=== PATIENT | female | born 1945 | race African-American/Black ===

== ENCOUNTER 2017-05-18 13:44 | Inpatient (IN) | payer MEDICARE, BC ==
[~2017-05-18] VITALS: Ht 162.6 cm; Wt 42.9 kg
[~2017-05-18 13:44] MED LIST: IOHEXOL-350 100 ML BOTTLE ONE; SODIUM CHLORIDE 0.9% 10ML VIAL ONE
[2017-05-18 14:22] LABS: HEMATOCRIT. 28.4 % (36.0-48.0); HEMOGLOBIN. 9.2 g/dL (12.0-16.0); MEAN CORPUSCULAR HEMOGLOBIN 33.8 pg (28.0-32.0); MEAN CORPUSCULAR VOLUME 104.4 fL (81.0-99.0); MEAN PLATELET VOLUME 9.6 fl (7.4-10.4); PLATELET 142 x1000/uL (130-400); RED BLOOD CELL COUNT 2.72 mill/uL (4.2-5.4); RED CELL DISTRIBUTION WIDTH 17.1 % (11.6-14.6)
[2017-05-18 14:33] LABS: PROTHROMBIN TIME 64.6 sec (9.4-11.6)
[2017-05-18 14:37] LABS: CARBON DIOXIDE 19 mEq/L (21-32); CHLORIDE 106 mEq/L (98-107); INR 6.2; TROPONIN I 0.08 ng/mL (0.00-0.04)
[2017-05-18 16:05] LABS: PLATELET ESTIMATE NORMAL
[2017-05-18] MEDS ORDERED: ACETAMINOPHEN 325MG TABLET PO PRN (16:45)
[2017-05-18] MEDS ORDERED: NITROGLYCERIN 0.4MG TABLET SL SL PRN (16:45)
[2017-05-18] MEDS ORDERED: DOCUSATE SODIUM 100MG CAPSULE PO PRN (16:45)
[2017-05-18] MEDS ORDERED: LORAZEPAM 2MG/ML CPJ IV PRN (16:45)
[2017-05-18] MEDS ORDERED: ONDANSETRON HCL 4MG/2ML VIAL IV PRN (16:45)
[2017-05-18] MEDS ORDERED: MAGNESIUM/ALUMINUM HYDROXIDE/SIMETHICONE 30ML UDC PO PRN (16:45)
[2017-05-18] MEDS ORDERED: IPRATROPIUM/ALBUTEROL 0.5-3(2.5)MG/3ML NEB INH PRN (16:45)
[2017-05-18] MEDS ORDERED: DIPHENHYDRAMINE 50MG/ML VIAL IV PRN (16:45)
[2017-05-18] MEDS ORDERED: GUAIFENESIN 200MG/10ML SUGAR FREE UDC PO PRN (16:45)
[2017-05-18] MEDS ORDERED: MORPHINE SULFATE 4 MG/ML CPJ (NOT FOR IM USE) IV PRN (17:00)
[2017-05-18] MEDS ORDERED: TRAMADOL 50MG TABLET PO PRN (17:00)
[2017-05-18 17:43] LABS: VITAMIN B12 SERUM 1422 pg/mL (211-911)
[2017-05-18 18:54] LABS: FOLIC ACID (FOLATE) SERUM > 20.00 ng/mL (>5.38)
[2017-05-18 19:00] VITALS: BP 183/103
[2017-05-18 20:00] VITALS: BP 212/88
[2017-05-18] MEDS ORDERED: LABE100T PO (20:02)
[2017-05-18] MEDS ORDERED: INSU3INS8 SUBCUT (20:02)
[2017-05-18] MEDS ORDERED: IRON100V5 IV (20:02)
[2017-05-18] MEDS ORDERED: OCD PO (20:02)
[2017-05-18] MEDS ORDERED: NIFE90TA34 PO (20:02)
[2017-05-18] MEDS ORDERED: WARF5TAB73 PO (20:02)
[2017-05-18] MEDS ORDERED: EPOE10005 IJ (20:02)
[2017-05-18] MEDS ORDERED: ERGO500013 PO (20:02)
[2017-05-18] MEDS ORDERED: DORZ10DR7 EACHEYE (20:02)
[2017-05-18] MEDS ORDERED: BRIM15DR2 EACHEYE (20:02)
[2017-05-18] MEDS ORDERED: ANAS1TAB7 PO (20:09)
[2017-05-18] MEDS ORDERED: HYDR-4134 PO (20:09)
[2017-05-18] MEDS ORDERED: CINA30 PO (20:09)
[2017-05-18] MEDS ORDERED: ASPI-986 PO (20:09)
[2017-05-18] MEDS ORDERED: CLON0.1T PO (20:09)
[2017-05-18] MEDS ORDERED: ATOR20TA65 PO (20:09)
[2017-05-18] MEDS ORDERED: FOLI1TAB63 PO (20:09)
[2017-05-18] MEDS ORDERED: ZOLPIDEM TARTRATE 5MG TABLET PO PRN (20:30)
[2017-05-18] MEDS: CLONIDINE 0.1MG TABLET PO SCH (20:34)
[2017-05-18] MEDS: HYDRALAZINE HCL 25MG TABLET PO SCH (20:34)
[2017-05-18] MEDS: NIFEDIPINE XL 90MG TAB PO SCH (20:34)
[2017-05-18] MEDS: LABETALOL HCL 100MG TABLET PO SCH (20:35)
[2017-05-18] MEDS ORDERED: EPOETIN ALFA 10000UNITS/ML VIAL SUBCUT SCH (21:00)
[2017-05-18] MEDS ORDERED: HEPARIN SODIUM 1,000 UNIT/1ML VIAL IV NR (21:00)
[2017-05-18 22:00] VITALS: BP 194/68
[2017-05-18 23:09] LABS: CREATINE KINASE MB FRACTION 2.7 ng/mL (0.5-3.6); TROPONIN I 0.09 ng/mL (0.00-0.04)
[2017-05-18] MEDS: FAMOTIDINE 20MG/2ML VIAL IV SCH (23:46)
[2017-05-19] VITALS (14 sets, daily range): BP systolic 143–190; BP diastolic 54–103
[2017-05-19] MEDS: CLONIDINE 0.1MG TABLET PO PRN ×2 (05:22→19:31)
[2017-05-19] MEDS: LABETALOL HCL 100MG TABLET PO SCH ×3 (05:22→21:18)
[2017-05-19 06:53] LABS: BASOPHILS % 1.2 % (0.0-2.0); EOSINOPHILS % 3.1 % (0.0-5.0); HEMATOCRIT. 27.4 % (36.0-48.0); HEMOGLOBIN. 9.1 g/dL (12.0-16.0); MEAN CORPUSCULAR HEMOGLOBIN 33.8 pg (28.0-32.0); MEAN CORPUSCULAR VOLUME 102.3 fL (81.0-99.0); MEAN PLATELET VOLUME 10.1 fl (7.4-10.4); MONOCYTES % 8.6 % (2.0-8.0); NEUTROPHILS % 72.1 % (40.0-76.0); PLATELET 132 x1000/uL (130-400); RED BLOOD CELL COUNT 2.68 mill/uL (4.2-5.4); RED CELL DISTRIBUTION WIDTH 16.9 % (11.6-14.6)
[2017-05-19] MEDS: HYDRALAZINE HCL 25MG TABLET PO SCH ×3 (06:53→21:18)
[2017-05-19] MEDS: CLONIDINE 0.1MG TABLET PO SCH ×2 (06:54→17:34)
[2017-05-19 07:29] LABS: INR 4.4
[2017-05-19 07:42] LABS: CREATINE KINASE MB FRACTION 1.8 ng/mL (0.5-3.6); TROPONIN I 0.09 ng/mL (0.00-0.04)
[2017-05-19] MEDS: SEVELAMER CARBONATE 800 MG TABLET PO SCH ×3 (08:33→17:34)
[2017-05-19] MEDS: FOLIC ACID/VITAMIN B COMP W-C TABLET PO SCH (08:33)
[2017-05-19] MEDS: NIFEDIPINE XL 90MG TAB PO SCH (08:33)
[2017-05-19] MEDS ORDERED: HEPARIN SODIUM 1,000 UNIT/1ML VIAL IV NR (13:30)
[2017-05-19] MEDS ORDERED: DEXTROSE 50% WATER 50ML SYRINGE IV PRN (19:45)
[2017-05-19] MEDS: BLOOD SUGAR DIAGNOSTIC STRIP TEST SCH (20:42)
[2017-05-19] MEDS ORDERED: EPOETIN ALFA 4000UNITS/ML VIAL SUBCUT NR (21:00)
[2017-05-19] MEDS: INSULIN LISPRO 100 UNITS/ML SUBCUT SCH (21:19)
[2017-05-19] MEDS: FAMOTIDINE 20MG/2ML VIAL IV SCH (21:20)
[2017-05-20] VITALS (14 sets, daily range): BP systolic 125–211; BP diastolic 48–81
[2017-05-20] MEDS: CLONIDINE 0.1MG TABLET PO PRN ×3 (01:16→11:38)
[2017-05-20] MEDS: HYDRALAZINE HCL 25MG TABLET PO SCH (05:25)
[2017-05-20] MEDS: LABETALOL HCL 100MG TABLET PO SCH ×3 (05:25→22:00)
[2017-05-20 06:15] LABS: BASOPHILS % 1.2 % (0.0-2.0); EOSINOPHILS % 4.5 % (0.0-5.0); HEMATOCRIT. 28.1 % (36.0-48.0); HEMOGLOBIN. 9.4 g/dL (12.0-16.0); LYMPHOCYTES % 15.2 % (20.0-50.0); MEAN CORPUSCULAR HEMOGLOBIN 34.1 pg (28.0-32.0); MEAN CORPUSCULAR VOLUME 102.1 fL (81.0-99.0); MEAN PLATELET VOLUME 9.6 fl (7.4-10.4); MONOCYTES % 9.1 % (2.0-8.0); PLATELET 128 x1000/uL (130-400); RED BLOOD CELL COUNT 2.75 mill/uL (4.2-5.4); RED CELL DISTRIBUTION WIDTH 16.5 % (11.6-14.6)
[2017-05-20 06:31] LABS: INR 2.5; PROTHROMBIN TIME 26.2 sec (9.4-11.6)
[2017-05-20] MEDS: BLOOD SUGAR DIAGNOSTIC STRIP TEST SCH ×4 (08:00→21:07)
[2017-05-20] MEDS: FOLIC ACID/VITAMIN B COMP W-C TABLET PO SCH (08:05)
[2017-05-20] MEDS: CLONIDINE 0.1MG TABLET PO SCH ×2 (08:05→16:57)
[2017-05-20] MEDS: SEVELAMER CARBONATE 800 MG TABLET PO SCH ×3 (08:05→16:56)
[2017-05-20] MEDS: NIFEDIPINE XL 90MG TAB PO SCH (08:05)
[2017-05-20] MEDS: INSULIN LISPRO 100 UNITS/ML SUBCUT SCH ×4 (08:06→21:00)
[2017-05-20] MEDS: MINOXIDIL 2.5MG TABLET PO SCH (12:43)
[2017-05-20] MEDS: HYDRALAZINE HCL 50MG TABLET PO SCH ×2 (14:03→21:07)
[2017-05-20] MEDS ORDERED: WARFARIN SODIUM 4MG TABLET PO SCH (18:00)
[2017-05-20] MEDS: FAMOTIDINE 20MG/2ML VIAL IV SCH (21:06)
[2017-05-21] VITALS (9 sets, daily range): BP systolic 119–147; BP diastolic 45–75
[2017-05-21 05:56] LABS: INR 1.7; PROTHROMBIN TIME 18.1 sec (9.4-11.6)
[2017-05-21 06:05] LABS: BASOPHILS % 1.3 % (0.0-2.0); EOSINOPHILS % 4.2 % (0.0-5.0); HEMATOCRIT. 27.1 % (36.0-48.0); HEMOGLOBIN. 9.2 g/dL (12.0-16.0); MEAN CORPUSCULAR HEMOGLOBIN 34.1 pg (28.0-32.0); MEAN CORPUSCULAR VOLUME 100.9 fL (81.0-99.0); MEAN PLATELET VOLUME 9.8 fl (7.4-10.4); MONOCYTES % 7.6 % (2.0-8.0); NEUTROPHILS % 67.9 % (40.0-76.0); PLATELET 147 x1000/uL (130-400); RED BLOOD CELL COUNT 2.69 mill/uL (4.2-5.4); RED CELL DISTRIBUTION WIDTH 16.3 % (11.6-14.6)
[2017-05-21] MEDS: HYDRALAZINE HCL 50MG TABLET PO SCH ×2 (06:09→14:46)
[2017-05-21] MEDS: LABETALOL HCL 100MG TABLET PO SCH ×2 (06:10→14:46)
[2017-05-21] MEDS: BLOOD SUGAR DIAGNOSTIC STRIP TEST SCH ×2 (06:17→13:00)
[2017-05-21] MEDS: INSULIN LISPRO 100 UNITS/ML SUBCUT SCH ×2 (06:28→13:41)
[2017-05-21] MEDS: SEVELAMER CARBONATE 800 MG TABLET PO SCH ×2 (07:20→13:35)
[2017-05-21] MEDS: FOLIC ACID/VITAMIN B COMP W-C TABLET PO SCH (09:00)
[2017-05-21] MEDS: CLONIDINE 0.1MG TABLET PO SCH (09:00)
[2017-05-21] MEDS: MINOXIDIL 2.5MG TABLET PO SCH (10:00)
[2017-05-21] MEDS: NIFEDIPINE XL 90MG TAB PO SCH (10:00)
[2017-05-21] MEDS ORDERED: WARFARIN SODIUM 5MG TABLET PO NR (17:00)
== END 2017-05-21 15:50 | disposition home or self-care (01) | DRG 291 ==
LOC: ER 13:58 → 3WST 15:48 → SUPCPDRO 15:59 → EDBEDREQ 16:02 → EDBEDREQTM 16:02 → ENRESERV 17:52
PROVIDERS: ADMIT Internal Medicine; ATTEND Internal Medicine
DX: I13.2 Hypertensive heart and chronic kidney disease with heart failure and with stage 5 chronic kidney disease, or end stage renal disease (principal); I26.99 Other pulmonary embolism without acute cor pulmonale; J96.91 Respiratory failure, unspecified with hypoxia; N18.6 End stage renal disease; I31.3 Pericardial effusion (noninflammatory); D68.9 Coagulation defect, unspecified; E11.22 Type 2 diabetes mellitus with diabetic chronic kidney disease; I50.33 Acute on chronic diastolic (congestive) heart failure; E44.1 Mild protein-calorie malnutrition; Z68.1 Body mass index [BMI] 19.9 or less, adult; Z99.81 Dependence on supplemental oxygen; E83.51 Hypocalcemia; E87.5 Hyperkalemia; J44.9 Chronic obstructive pulmonary disease, unspecified; Z79.01 Long term (current) use of anticoagulants; Z86.718 Personal history of other venous thrombosis and embolism; Z99.2 Dependence on renal dialysis; Z79.899 Other long term (current) drug therapy; Z86.73 Personal history of transient ischemic attack (TIA), and cerebral infarction without residual deficits; D64.9 Anemia, unspecified; T45.515A Adverse effect of anticoagulants, initial encounter; Y92.89 Other specified places as the place of occurrence of the external cause
CPT/HCPCS: 36415; 71010; 71275; 80048; 80053; 80061; 82550; 82553; 82607; 82746; 82962; 83036; 83880; 84484; 85025; 85610; 93005; 93306; 93970; 97162; 99285; A4216; J0885; J1644; J1815; J3490; J7030; Q9967

== ENCOUNTER 2017-06-14 04:04 | Inpatient (IN) | payer MEDICARE, BC ==
[~2017-06-14] VITALS: Ht 149.9 cm; Wt 44.0 kg
[~2017-06-14 04:04] MED LIST changes: +ANAS1TAB7 PO; +ASPI-986 PO; +ATOR20TA65 PO; +BRIM15DR2 EACHEYE; +CINA30 PO; +CLON0.1T PO; +DORZ10DR7 EACHEYE; +EPOE10005 IJ; +ERGO500013 PO; +FOLI1TAB63 PO; +HYDR-4134 PO; +INSU3INS8 SUBCUT; -IOHEXOL-350 100 ML BOTTLE ONE; +IRON100V5 IV; +LABE100T PO; +NIFE90TA34 PO; +OCD PO; -SODIUM CHLORIDE 0.9% 10ML VIAL ONE; +WARF5TAB73 PO
[2017-06-14] MEDS ORDERED: DEXTROSE 50% WATER 50ML SYRINGE IV ONE ×2 (04:15→04:30)
[2017-06-14] MEDS: DEXTROSE 5% WATER 1,000 ML IV ONE ×2 (04:23→04:54)
[2017-06-14 04:55] LABS: HEMATOCRIT. 34.3 % (36.0-48.0); HEMOGLOBIN. 11.6 g/dL (12.0-16.0); MEAN CORPUSCULAR HEMOGLOBIN 34.8 pg (28.0-32.0); MEAN CORPUSCULAR VOLUME 103.4 fL (81.0-99.0); MEAN PLATELET VOLUME 8.9 fl (7.4-10.4); PLATELET 200 x1000/uL (130-400); RED BLOOD CELL COUNT 3.32 mill/uL (4.2-5.4); RED CELL DISTRIBUTION WIDTH 18.5 % (11.6-14.6)
[2017-06-14 05:03] LABS: CARBON DIOXIDE 33 mEq/L (21-32); CHLORIDE 101 mEq/L (98-107); TROPONIN I 0.08 ng/mL (0.00-0.04)
[2017-06-14 05:35] LABS: PLATELET ESTIMATE NORMAL
[2017-06-14] MEDS ORDERED: CLONIDINE 0.1MG TABLET PO PRN (06:45)
[2017-06-14] MEDS ORDERED: ENOXAPARIN 40MG/0.4ML SYR SUBCUT SCH (06:45)
[2017-06-14] MEDS ORDERED: NA PHOS,M-B/NA PHOS,DI-BA ENEMA 118ML PR PRN (06:45)
[2017-06-14] MEDS ORDERED: LORAZEPAM 2MG/ML CPJ IV PRN (06:45)
[2017-06-14] MEDS ORDERED: ONDANSETRON HCL 4MG/2ML VIAL IV PRN (06:45)
[2017-06-14] MEDS ORDERED: DIPHENHYDRAMINE 50MG/ML VIAL IV PRN (06:45)
[2017-06-14] MEDS ORDERED: GUAIFENESIN 200MG/10ML SUGAR FREE UDC PO PRN (06:45)
[2017-06-14] MEDS ORDERED: HYDROCODONE/ACETAMINOPHEN 5/325MG TABLET PO PRN (06:45)
[2017-06-14] MEDS ORDERED: HYDROMORPHONE HCL/PF 2MG/ML CPJ IV PRN (06:45)
[2017-06-14] MEDS ORDERED: DOCUSATE SODIUM 100MG CAPSULE PO PRN (06:45)
[2017-06-14] MEDS ORDERED: MAGNESIUM/ALUMINUM HYDROXIDE/SIMETHICONE 30ML UDC PO PRN (06:45)
[2017-06-14] MEDS ORDERED: IPRATROPIUM/ALBUTEROL 0.5-3(2.5)MG/3ML NEB INH PRN (06:45)
[2017-06-14] MEDS ORDERED: ACETAMINOPHEN 325MG TABLET PO PRN (06:45)
[2017-06-14 08:30] VITALS: BP 153/59
[2017-06-14] MEDS ORDERED: ASPIRIN 81MG EC TABLET PO SCH (09:00)
[2017-06-14] MEDS ORDERED: ENOXAPARIN 30MG/0.3ML SYR SUBCUT SCH ×2 (09:00→11:00)
[2017-06-14] MEDS ORDERED: HYDRALAZINE HCL 25MG TABLET PO SCH ×2 (10:00→13:00)
[2017-06-14] MEDS ORDERED: LISI-604 PO (10:08)
[2017-06-14 12:30] VITALS: BP 187/60
[2017-06-14 12:59] LABS: INR 1.9; PROTHROMBIN TIME 19.4 sec (9.4-11.6)
[2017-06-14] MEDS: CINACALCET HCL 30MG TABLET PO SCH (13:37)
[2017-06-14] MEDS: LABETALOL HCL 100MG TABLET PO SCH ×2 (13:38→22:25)
[2017-06-14] MEDS: DEXT 5%/0.45% NACL 1000ML 1,000 ML IV SCH (13:39)
[2017-06-14] MEDS: ATORVASTATIN CALCIUM 20MG TABLET PO SCH (13:39)
[2017-06-14] MEDS: HYDRALAZINE HCL 25MG TABLET PO SCH ×4 (13:46→22:25)
[2017-06-14] MEDS: ANASTROZOLE 1 MG TABLET PO SCH (13:54)
[2017-06-14] MEDS ORDERED: DEXTROSE 50% WATER 50ML SYRINGE IV PRN (14:45)
[2017-06-14] MEDS: DORZOLAMIDE 2% OPHTH 10 ML BOTTLE EACHEYE SCH ×2 (15:30→18:08)
[2017-06-14 15:46] VITALS: BP 187/59
[2017-06-14 16:09] LABS: CREATINE KINASE MB FRACTION 4.3 ng/mL (0.5-3.6); TROPONIN I 0.07 ng/mL (0.00-0.04)
[2017-06-14] MEDS: BLOOD SUGAR DIAGNOSTIC STRIP TEST SCH ×2 (16:35→20:48)
[2017-06-14 17:30] VITALS: BP 148/59
[2017-06-14] MEDS ORDERED: WARFARIN SODIUM 5MG TABLET PO SCH (18:00)
[2017-06-14] MEDS: INSULIN LISPRO 100 UNITS/ML SUBCUT SCH ×2 (18:06→20:47)
[2017-06-14] MEDS: BRIMONIDINE 0.2% OPHTH DROPS 5ML EACHEYE SCH (18:08)
[2017-06-14 20:00] VITALS: BP 192/63
[2017-06-14] MEDS: LISINOPRIL 20MG TABLET PO SCH (20:47)
[2017-06-14] MEDS: CLONIDINE 0.1MG TABLET PO SCH (20:47)
[2017-06-14] MEDS: NIFEDIPINE XL 90MG TAB PO SCH (20:52)
[2017-06-14 23:55] LABS: CREATINE KINASE MB FRACTION 2.5 ng/mL (0.5-3.6); TROPONIN I 0.11 ng/mL (0.00-0.04)
[2017-06-15] VITALS: BP 196/73
[2017-06-15 04:00] VITALS: BP 168/53
[2017-06-15] MEDS: LABETALOL HCL 100MG TABLET PO SCH ×3 (05:25→21:12)
[2017-06-15] MEDS: HYDRALAZINE HCL 25MG TABLET PO SCH ×3 (05:26→21:12)
[2017-06-15] MEDS: DEXT 5%/0.45% NACL 1000ML 1,000 ML IV SCH ×2 (05:33→16:24)
[2017-06-15 06:42] LABS: BASOPHILS % 1.2 % (0.0-2.0); HEMATOCRIT. 27.6 % (36.0-48.0); HEMOGLOBIN. 9.2 g/dL (12.0-16.0); LYMPHOCYTES % 20.1 % (20.0-50.0); MEAN CORPUSCULAR HEMOGLOBIN 34.3 pg (28.0-32.0); MEAN PLATELET VOLUME 8.8 fl (7.4-10.4); MONOCYTES % 7.8 % (2.0-8.0); NEUTROPHILS % 67.9 % (40.0-76.0); PLATELET 214 x1000/uL (130-400); RED BLOOD CELL COUNT 2.68 mill/uL (4.2-5.4); RED CELL DISTRIBUTION WIDTH 18.9 % (11.6-14.6)
[2017-06-15] MEDS: BLOOD SUGAR DIAGNOSTIC STRIP TEST SCH ×4 (07:20→20:38)
[2017-06-15] MEDS: INSULIN LISPRO 100 UNITS/ML SUBCUT SCH ×4 (07:21→21:16)
[2017-06-15 07:55] LABS: CARBON DIOXIDE 26 mEq/L (21-32); CREATINE KINASE 102 IU/L (26-192); CREATINE KINASE MB FRACTION 2.7 ng/mL (0.5-3.6); HDL CHOLESTEROL 48 mg/dL (40-59); LDL CHOLESTEROL 56 mg/dL (5-100); T4 FREE 1.12 ng/dL (0.76-1.46)
[2017-06-15 07:58] LABS: CHLORIDE 98 mEq/L (98-107)
[2017-06-15 08:00] VITALS: BP 144/99
[2017-06-15] MEDS: DORZOLAMIDE 2% OPHTH 10 ML BOTTLE EACHEYE SCH ×3 (08:21→16:24)
[2017-06-15] MEDS: CINACALCET HCL 30MG TABLET PO SCH (08:21)
[2017-06-15] MEDS: ASPIRIN 325MG TABLET PO SCH (08:21)
[2017-06-15] MEDS: CLONIDINE 0.1MG TABLET PO SCH ×2 (08:21→21:12)
[2017-06-15] MEDS: BRIMONIDINE 0.2% OPHTH DROPS 5ML EACHEYE SCH ×3 (08:21→16:24)
[2017-06-15] MEDS: ATORVASTATIN CALCIUM 20MG TABLET PO SCH (08:21)
[2017-06-15] MEDS: ANASTROZOLE 1 MG TABLET PO SCH ×2 (09:00→12:54)
[2017-06-15 12:00] VITALS: BP 139/60
[2017-06-15] MEDS: CALCIUM CARBONATE/VITAMIN D3 500MG TABLET PO SCH ×2 (12:54→16:24)
[2017-06-15 15:30] LABS: INR 2.5; PROTHROMBIN TIME 25.5 sec (9.4-11.6)
[2017-06-15 16:00] VITALS: BP 170/48
[2017-06-15] MEDS ORDERED: WARFARIN SODIUM 2.5MG TABLET PO SCH (18:00)
[2017-06-15 20:00] VITALS: BP 160/60
[2017-06-15] MEDS: NIFEDIPINE XL 90MG TAB PO SCH (21:12)
[2017-06-15] MEDS: LISINOPRIL 20MG TABLET PO SCH (21:12)
[2017-06-16] VITALS: BP 162/51
[2017-06-16 04:00] VITALS: BP 166/59
[2017-06-16] MEDS: LABETALOL HCL 100MG TABLET PO SCH ×3 (05:26→16:16)
[2017-06-16] MEDS: HYDRALAZINE HCL 25MG TABLET PO SCH ×3 (05:26→16:17)
[2017-06-16] MEDS: BLOOD SUGAR DIAGNOSTIC STRIP TEST SCH ×3 (05:46→16:56)
[2017-06-16] MEDS: INSULIN LISPRO 100 UNITS/ML SUBCUT SCH ×3 (05:52→16:56)
[2017-06-16 06:48] LABS: INR 2.5; PROTHROMBIN TIME 25.8 sec (9.4-11.6)
[2017-06-16 07:08] LABS: BASOPHILS % 1.7 % (0.0-2.0); EOSINOPHILS % 3.9 % (0.0-5.0); HEMATOCRIT. 29.2 % (36.0-48.0); HEMOGLOBIN. 9.8 g/dL (12.0-16.0); LYMPHOCYTES % 17.5 % (20.0-50.0); MEAN CORPUSCULAR VOLUME 103.8 fL (81.0-99.0); NEUTROPHILS % 67.9 % (40.0-76.0); PLATELET 221 x1000/uL (130-400); RED BLOOD CELL COUNT 2.81 mill/uL (4.2-5.4); RED CELL DISTRIBUTION WIDTH 18.4 % (11.6-14.6)
[2017-06-16 07:11] VITALS: BP 177/61
[2017-06-16] MEDS: DEXT 5%/0.45% NACL 1000ML 1,000 ML IV SCH (08:10)
[2017-06-16] MEDS: CALCIUM CARBONATE/VITAMIN D3 500MG TABLET PO SCH ×3 (08:10→16:56)
[2017-06-16] MEDS: CINACALCET HCL 30MG TABLET PO SCH (08:10)
[2017-06-16] MEDS: ATORVASTATIN CALCIUM 20MG TABLET PO SCH (08:10)
[2017-06-16] MEDS: DORZOLAMIDE 2% OPHTH 10 ML BOTTLE EACHEYE SCH ×3 (08:10→16:56)
[2017-06-16] MEDS: BRIMONIDINE 0.2% OPHTH DROPS 5ML EACHEYE SCH ×3 (08:10→16:56)
[2017-06-16] MEDS: ASPIRIN 325MG TABLET PO SCH (08:10)
[2017-06-16] MEDS: CLONIDINE 0.1MG TABLET PO SCH ×2 (08:44→16:16)
[2017-06-16] MEDS: ANASTROZOLE 1 MG TABLET PO SCH (09:30)
[2017-06-16 12:00] VITALS: BP 173/66
[2017-06-16 14:06] VITALS: BP_SYST 132; BP_SYST 145; BP_DIAS 78
[2017-06-16] MEDS ORDERED: WARFARIN SODIUM 2.5MG TABLET PO NR (18:00)
== END 2017-06-16 16:55 | disposition home health service (06) | DRG 91 ==
LOC: ER 04:12 → 8WST 05:40 → EDBEDREQ 06:00 → ENRESERV 06:47
PROVIDERS: ADMIT Internal Medicine; ATTEND Internal Medicine
PROC: 5A1D70Z Performance of Urinary Filtration, Intermittent, Less than 6 Hours Per Day (ICD-10-PCS; principal; 2017-06-15)
DX: G92 Toxic encephalopathy (principal); I50.33 Acute on chronic diastolic (congestive) heart failure; N17.9 Acute kidney failure, unspecified; I13.2 Hypertensive heart and chronic kidney disease with heart failure and with stage 5 chronic kidney disease, or end stage renal disease; E46 Unspecified protein-calorie malnutrition; I48.91 Unspecified atrial fibrillation; E11.22 Type 2 diabetes mellitus with diabetic chronic kidney disease; E11.649 Type 2 diabetes mellitus with hypoglycemia without coma; D64.9 Anemia, unspecified; N18.6 End stage renal disease; I25.10 Atherosclerotic heart disease of native coronary artery without angina pectoris; Z68.1 Body mass index [BMI] 19.9 or less, adult; J44.9 Chronic obstructive pulmonary disease, unspecified; Z79.4 Long term (current) use of insulin; Z79.82 Long term (current) use of aspirin; Z79.899 Other long term (current) drug therapy; Z99.2 Dependence on renal dialysis; Z86.711 Personal history of pulmonary embolism; Z86.718 Personal history of other venous thrombosis and embolism; Z86.73 Personal history of transient ischemic attack (TIA), and cerebral infarction without residual deficits
CPT/HCPCS: 36415; 70450; 71010; 80048; 80053; 80061; 82550; 82553; 82962; 83036; 83880; 84439; 84443; 84484; 85025; 85379; 85610; 93005; 93306; 96374; 97162; 97166; 99291; J1650; J1815; J7030; J7070

== ENCOUNTER 2018-03-06 10:26 | Inpatient (IN) | payer MEDICARE, BC ==
[~2018-03-06] VITALS: Ht 149.9 cm; Wt 49.9 kg
[~2018-03-06 10:26] MED LIST changes: -DORZ10DR7 EACHEYE; +DORZ10DR8 EACHEYE; -ERGO500013 PO; +LISI-604 PO; +WARF-53 PO; -WARF5TAB73 PO
[2018-03-06] MEDS ORDERED: ASPIRIN 81MG TABLET PO STA (11:43)
[2018-03-06 12:07] LABS: BASOPHILS % 0.6 % (0.0-2.0); EOSINOPHILS % 2.3 % (0.0-5.0); HEMATOCRIT. 24.5 % (36.0-48.0); HEMOGLOBIN. 8.5 g/dL (12.0-16.0); LYMPHOCYTES % 8.9 % (20.0-50.0); MEAN CORPUSCULAR HEMOGLOBIN 36.6 pg (28.0-32.0); MEAN CORPUSCULAR VOLUME 105.8 fL (81.0-99.0); MEAN PLATELET VOLUME 8.6 fl (7.4-10.4); NEUTROPHILS % 83.2 % (40.0-76.0); PLATELET 209 x1000/uL (130-400); RED BLOOD CELL COUNT 2.32 mill/uL (4.2-5.4); RED CELL DISTRIBUTION WIDTH 13.6 % (11.6-14.6)
[2018-03-06 12:08] LABS: CHLORIDE 97 mEq/L (98-107)
[2018-03-06 12:12] LABS: INR 1.9; PARTIAL THROMBOPLASTIN TIME 31.9 sec (23.4-31.0); PROTHROMBIN TIME 19.9 sec (9.4-11.6)
[2018-03-06] MEDS ORDERED: DEXTROSE 50% WATER 50ML SYRINGE IV PRN (15:00)
[2018-03-06] MEDS ORDERED: SODIUM CHLORIDE 0.9% 1000ML BAG (SEPSIS BOLUS) IV ONE (15:30)
[2018-03-06] MEDS ORDERED: LEVOFLOXACIN 750MG PREMIX 150 ML IV ONE (15:30)
[2018-03-06 16:00] VITALS: BP 153/50
[2018-03-06] MEDS: CLONIDINE 0.1MG TABLET PO SCH (17:00)
[2018-03-06] MEDS: BLOOD SUGAR DIAGNOSTIC STRIP TEST SCH ×2 (17:40→20:51)
[2018-03-06] MEDS ORDERED: WARFARIN SODIUM 5MG TABLET PO NR (18:00)
[2018-03-06] MEDS ORDERED: MINO2.5T2 MT (18:00)
[2018-03-06] MEDS ORDERED: HYDROCODONE (18:09)
[2018-03-06] MEDS: CINACALCET HCL 30MG TABLET PO SCH (18:10)
[2018-03-06 18:23] VITALS: BP 153/50
[2018-03-06] MEDS ORDERED: WARFARIN SODIUM 7.5MG TABLET PO NR (18:30)
[2018-03-06 20:00] VITALS: BP 148/52
[2018-03-06] MEDS: EPOETIN ALFA 10000UNITS/ML VIAL SUBCUT SCH (22:49)
[2018-03-06] MEDS: ATORVASTATIN CALCIUM 20MG TABLET PO SCH (22:49)
[2018-03-06] MEDS: BRIMONIDINE 0.2% OPHTH DROPS 5ML BOTHEYE SCH (22:49)
[2018-03-06] MEDS: DORZOLAMIDE 2% OPHTH 10 ML BOTTLE BOTHEYE SCH (22:49)
[2018-03-07] VITALS: BP 152/48
[2018-03-07 04:00] VITALS: BP 148/55
[2018-03-07] MEDS: DORZOLAMIDE 2% OPHTH 10 ML BOTTLE BOTHEYE SCH ×3 (05:43→21:44)
[2018-03-07] MEDS: BRIMONIDINE 0.2% OPHTH DROPS 5ML BOTHEYE SCH ×3 (05:43→21:44)
[2018-03-07 06:59] LABS: PROTHROMBIN TIME 21.1 sec (9.4-11.6)
[2018-03-07 07:17] LABS: BASOPHILS % 0.9 % (0.0-2.0); EOSINOPHILS % 6.3 % (0.0-5.0); HEMATOCRIT. 23.1 % (36.0-48.0); LYMPHOCYTES % 11.9 % (20.0-50.0); MEAN CORPUSCULAR HEMOGLOBIN 36.4 pg (28.0-32.0); MEAN CORPUSCULAR VOLUME 105.6 fL (81.0-99.0); MEAN PLATELET VOLUME 8.5 fl (7.4-10.4); MONOCYTES % 6.7 % (2.0-8.0); NEUTROPHILS % 74.2 % (40.0-76.0); PLATELET 210 x1000/uL (130-400); RED BLOOD CELL COUNT 2.19 mill/uL (4.2-5.4); RED CELL DISTRIBUTION WIDTH 13.6 % (11.6-14.6)
[2018-03-07] MEDS: BLOOD SUGAR DIAGNOSTIC STRIP TEST SCH ×4 (07:40→20:49)
[2018-03-07 08:00] VITALS: BP 152/49
[2018-03-07 08:11] LABS: PHOSPHORUS 2.5 mg/dL (2.5-4.9)
[2018-03-07] MEDS ORDERED: UMECLIDINIUM BROMIDE 1 INH BLST.W.DEV IH SCH (09:00)
[2018-03-07] MEDS ORDERED: FLUTICASONE/VILANTEROL 200-25 BLST.W.DEV ORI SCH (09:00)
[2018-03-07] MEDS: FOLIC ACID/VITAMIN B COMP W-C TABLET PO SCH (09:15)
[2018-03-07] MEDS: CLONIDINE 0.1MG TABLET PO SCH ×2 (09:15→18:34)
[2018-03-07] MEDS: CLOPIDOGREL 75MG TABLET PO SCH (09:15)
[2018-03-07 09:47] LABS: T4 FREE 1.13 ng/dL (0.76-1.46)
[2018-03-07 12:00] VITALS: BP 148/56
[2018-03-07] MEDS: CINACALCET HCL 30MG TABLET PO SCH ×2 (13:06→18:33)
[2018-03-07 16:00] VITALS: BP 159/58
[2018-03-07 16:17] LABS: CREATINE KINASE MB FRACTION 0.9 ng/mL (0.5-3.6)
[2018-03-07] MEDS ORDERED: WARFARIN SODIUM 7.5MG TABLET PO SCH (18:00)
[2018-03-07 20:00] VITALS: BP 158/50
[2018-03-07] MEDS: ATORVASTATIN CALCIUM 20MG TABLET PO SCH (20:49)
[2018-03-08] VITALS: BP 181/64
[2018-03-08 01:38] LABS: CREATINE KINASE MB FRACTION 0.7 ng/mL (0.5-3.6)
[2018-03-08 04:00] VITALS: BP 110/65
[2018-03-08] MEDS: DORZOLAMIDE 2% OPHTH 10 ML BOTTLE BOTHEYE SCH ×3 (05:51→21:30)
[2018-03-08] MEDS: BRIMONIDINE 0.2% OPHTH DROPS 5ML BOTHEYE SCH ×3 (05:51→21:30)
[2018-03-08] MEDS: BLOOD SUGAR DIAGNOSTIC STRIP TEST SCH ×4 (07:47→21:30)
[2018-03-08 08:00] VITALS: BP 103/46
[2018-03-08] MEDS: CLONIDINE 0.1MG TABLET PO SCH ×2 (09:00→17:14)
[2018-03-08] MEDS: CLOPIDOGREL 75MG TABLET PO SCH (09:07)
[2018-03-08] MEDS: FOLIC ACID/VITAMIN B COMP W-C TABLET PO SCH (09:07)
[2018-03-08] MEDS: CINACALCET HCL 30MG TABLET PO SCH ×2 (09:07→17:12)
[2018-03-08 09:35] LABS: HEMATOCRIT 24.1 % (36.0-48.0); HEMOGLOBIN 8.3 g/dL (12.0-16.0); MEAN CORPUSCULAR HEMOGLOBIN 36.1 pg (28.0-32.0); PLATELET 231 x1000/uL (130-400); RED CELL DISTRIBUTION WIDTH 13.3 % (11.6-14.6)
[2018-03-08 09:38] LABS: INR 1.7; PROTHROMBIN TIME 18.3 sec (9.4-11.6)
[2018-03-08 12:00] VITALS: BP_SYST 157; BP_SYST 173; BP_DIAS 52; BP_DIAS 58
[2018-03-08] MEDS: ALBUTEROL (0.083%) 2.5MG/3ML NEB HHN SCH ×2 (13:47→19:44)
[2018-03-08] MEDS: IPRATROPIUM BROMIDE (0.02%) 0.5MG/2.5ML NEB HHN SCH ×2 (13:49→19:43)
[2018-03-08] MEDS: BUDESONIDE 0.5MG/2ML NEB HHN SCH ×2 (13:49→19:42)
[2018-03-08 16:00] VITALS: BP_SYST 144; BP_SYST 155; BP_DIAS 34; BP_DIAS 46
[2018-03-08 17:10] LABS: BG BASE EXCESS 5.7 mmol/L (-2.0-2.0); BG CARBOXYHEMOGLOBIN 0.4 % (0.5-1.5); BG DEOXYHEMOGLOBIN 15.9 % (0.0-5.0); BG HCO3 ACT 29.7 mmol/L (22.0-26.0); BG OXYHEMOGLOBIN 83.7 % (94.0-97.0); BG PCO2 40.6 mmHg (35.0-45.0); BG PH 7.482 (7.350-7.450); BG PO2 47.2 mmHg (75.0-100.0); BG SAMPLE SITE RIGHT BRACHIAL; BG TOTAL HEMOGLOBIN 8.1 g/dL (12.0-18.0); BG VENT MODE ROOM AIR
[2018-03-08] MEDS ORDERED: WARFARIN SODIUM 7.5MG TABLET PO SCH (18:00)
[2018-03-08 20:00] VITALS: BP 163/48
[2018-03-08] MEDS: EPOETIN ALFA 10000UNITS/ML VIAL SUBCUT SCH (21:29)
[2018-03-08] MEDS: ATORVASTATIN CALCIUM 20MG TABLET PO SCH (21:29)
[2018-03-09] VITALS (7 sets, daily range): BP systolic 101–204; BP diastolic 45–72
[2018-03-09] MEDS: ALBUTEROL (0.083%) 2.5MG/3ML NEB HHN SCH ×4 (01:11→19:56)
[2018-03-09] MEDS: IPRATROPIUM BROMIDE (0.02%) 0.5MG/2.5ML NEB HHN SCH ×4 (01:11→19:56)
[2018-03-09] MEDS: BRIMONIDINE 0.2% OPHTH DROPS 5ML BOTHEYE SCH ×3 (06:45→22:15)
[2018-03-09] MEDS: BLOOD SUGAR DIAGNOSTIC STRIP TEST SCH ×4 (06:45→22:15)
[2018-03-09] MEDS: DORZOLAMIDE 2% OPHTH 10 ML BOTTLE BOTHEYE SCH ×3 (06:45→22:15)
[2018-03-09] MEDS: BUDESONIDE 0.5MG/2ML NEB HHN SCH ×2 (08:02→19:56)
[2018-03-09] MEDS: FOLIC ACID/VITAMIN B COMP W-C TABLET PO SCH (08:54)
[2018-03-09] MEDS: CINACALCET HCL 30MG TABLET PO SCH ×2 (08:54→18:22)
[2018-03-09] MEDS: CLOPIDOGREL 75MG TABLET PO SCH (08:54)
[2018-03-09] MEDS: CLONIDINE 0.1MG TABLET PO SCH ×2 (09:02→17:09)
[2018-03-09 11:54] LABS: INR 2.2; PROTHROMBIN TIME 22.7 sec (9.4-11.6)
[2018-03-09 11:58] LABS: BASOPHILS % 1.2 % (0.0-2.0); EOSINOPHILS % 4.6 % (0.0-5.0); HEMOGLOBIN. 8.9 g/dL (12.0-16.0); LYMPHOCYTES % 12.3 % (20.0-50.0); MEAN CORPUSCULAR HEMOGLOBIN 36.1 pg (28.0-32.0); MEAN CORPUSCULAR VOLUME 105.2 fL (81.0-99.0); MEAN PLATELET VOLUME 8.7 fl (7.4-10.4); MONOCYTES % 6.9 % (2.0-8.0); PLATELET 232 x1000/uL (130-400); RED BLOOD CELL COUNT 2.48 mill/uL (4.2-5.4); RED CELL DISTRIBUTION WIDTH 13.4 % (11.6-14.6)
[2018-03-09] MEDS: ATORVASTATIN CALCIUM 20MG TABLET PO SCH (22:02)
[2018-03-10] VITALS (8 sets, daily range): BP systolic 107–196; BP diastolic 43–68
[2018-03-10] MEDS: ALBUTEROL (0.083%) 2.5MG/3ML NEB HHN SCH ×3 (00:49→12:00)
[2018-03-10] MEDS: IPRATROPIUM BROMIDE (0.02%) 0.5MG/2.5ML NEB HHN SCH ×4 (00:49→20:50)
[2018-03-10] MEDS: HYDRALAZINE 20MG/ML VIAL IV PRN ×2 (01:13→20:22)
[2018-03-10] MEDS: BLOOD SUGAR DIAGNOSTIC STRIP TEST SCH ×3 (06:56→21:26)
[2018-03-10] MEDS: DORZOLAMIDE 2% OPHTH 10 ML BOTTLE BOTHEYE SCH ×3 (06:59→21:25)
[2018-03-10] MEDS: BRIMONIDINE 0.2% OPHTH DROPS 5ML BOTHEYE SCH ×3 (06:59→21:24)
[2018-03-10 07:36] LABS: BASOPHILS % 0.8 % (0.0-2.0); EOSINOPHILS % 5.1 % (0.0-5.0); HEMATOCRIT. 25.5 % (36.0-48.0); HEMOGLOBIN. 8.8 g/dL (12.0-16.0); LYMPHOCYTES % 15.2 % (20.0-50.0); MEAN CORPUSCULAR HEMOGLOBIN 36.2 pg (28.0-32.0); MEAN CORPUSCULAR VOLUME 105.4 fL (81.0-99.0); MEAN PLATELET VOLUME 8.8 fl (7.4-10.4); MONOCYTES % 3.8 % (2.0-8.0); NEUTROPHILS % 75.1 % (40.0-76.0); PLATELET 251 x1000/uL (130-400); RED BLOOD CELL COUNT 2.42 mill/uL (4.2-5.4); RED CELL DISTRIBUTION WIDTH 13.7 % (11.6-14.6)
[2018-03-10] MEDS: FOLIC ACID/VITAMIN B COMP W-C TABLET PO SCH (08:47)
[2018-03-10] MEDS: CLOPIDOGREL 75MG TABLET PO SCH (08:47)
[2018-03-10] MEDS: CLONIDINE 0.1MG TABLET PO SCH ×2 (08:51→17:03)
[2018-03-10] MEDS: CINACALCET HCL 30MG TABLET PO SCH ×2 (08:54→17:03)
[2018-03-10] MEDS: ATORVASTATIN CALCIUM 20MG TABLET PO SCH (21:24)
[2018-03-11] MEDS: CLONIDINE 0.1MG TABLET PO PRN ×2 (00:56→23:55)
[2018-03-11] MEDS: IPRATROPIUM BROMIDE (0.02%) 0.5MG/2.5ML NEB HHN SCH ×4 (02:04→21:07)
[2018-03-11 04:00] VITALS: BP 190/65
[2018-03-11] MEDS: BRIMONIDINE 0.2% OPHTH DROPS 5ML BOTHEYE SCH ×3 (05:10→21:32)
[2018-03-11] MEDS: DORZOLAMIDE 2% OPHTH 10 ML BOTTLE BOTHEYE SCH ×3 (05:10→21:32)
[2018-03-11] MEDS: HYDRALAZINE 20MG/ML VIAL IV PRN ×3 (05:10→21:31)
[2018-03-11 05:49] LABS: BASOPHILS % 0.6 % (0.0-2.0); EOSINOPHILS % 3.9 % (0.0-5.0); HEMOGLOBIN. 8.1 g/dL (12.0-16.0); LYMPHOCYTES % 14.3 % (20.0-50.0); MEAN CORPUSCULAR HEMOGLOBIN 35.9 pg (28.0-32.0); MEAN CORPUSCULAR VOLUME 105.7 fL (81.0-99.0); MEAN PLATELET VOLUME 8.7 fl (7.4-10.4); NEUTROPHILS % 75.2 % (40.0-76.0); PLATELET 245 x1000/uL (130-400); RED BLOOD CELL COUNT 2.27 mill/uL (4.2-5.4); RED CELL DISTRIBUTION WIDTH 13.5 % (11.6-14.6)
[2018-03-11 06:39] VITALS: BP 148/48
[2018-03-11] MEDS: BLOOD SUGAR DIAGNOSTIC STRIP TEST SCH ×4 (07:40→21:21)
[2018-03-11] MEDS: ALBUTEROL (0.083%) 2.5MG/3ML NEB HHN SCH ×3 (07:52→21:07)
[2018-03-11 08:00] VITALS: BP 142/51
[2018-03-11] MEDS: CINACALCET HCL 30MG TABLET PO SCH ×2 (08:10→19:25)
[2018-03-11 08:43] LABS: INR 1.7; PROTHROMBIN TIME 18.1 sec (9.4-11.6)
[2018-03-11] MEDS: CLONIDINE 0.1MG TABLET PO SCH ×2 (09:00→16:16)
[2018-03-11] MEDS: FOLIC ACID/VITAMIN B COMP W-C TABLET PO SCH (10:47)
[2018-03-11] MEDS: CLOPIDOGREL 75MG TABLET PO SCH (10:47)
[2018-03-11 12:00] VITALS: BP 169/40
[2018-03-11 12:23] LABS: BG BASE EXCESS 4.3 mmol/L (-2.0-2.0); BG CARBOXYHEMOGLOBIN 0.7 % (0.5-1.5); BG DEOXYHEMOGLOBIN 16.4 % (0.0-5.0); BG FRACTION INSPIRED OXYGEN 21; BG HCO3 ACT 28.4 mmol/L (22.0-26.0); BG METHEMOGLOBIN 0.2 % (0.0-1.5); BG OXYGEN SATURATION 83.5 % (92.0-98.5); BG OXYHEMOGLOBIN 82.7 % (94.0-97.0); BG PCO2 40.3 mmHg (35.0-45.0); BG PH 7.466 (7.350-7.450); BG PO2 49.2 mmHg (75.0-100.0); BG SAMPLE SITE LEFT BRACHIAL; BG TOTAL HEMOGLOBIN 9.6 g/dL (12.0-18.0); BG VENT MODE ROOM AIR
[2018-03-11 16:00] VITALS: BP 179/42
[2018-03-11 20:15] VITALS: BP 202/64
[2018-03-11] MEDS: ATORVASTATIN CALCIUM 20MG TABLET PO SCH (21:30)
[2018-03-11] MEDS: EPOETIN ALFA 10000UNITS/ML VIAL SUBCUT SCH (21:31)
[2018-03-12] VITALS: BP 182/50
[2018-03-12] MEDS: ALBUTEROL (0.083%) 2.5MG/3ML NEB HHN SCH ×3 (02:28→13:20)
[2018-03-12] MEDS: IPRATROPIUM BROMIDE (0.02%) 0.5MG/2.5ML NEB HHN SCH ×3 (02:28→13:20)
[2018-03-12 04:00] VITALS: BP 195/67
[2018-03-12] MEDS: HYDRALAZINE 20MG/ML VIAL IV PRN ×2 (05:50→13:53)
[2018-03-12] MEDS: CLONIDINE 0.1MG TABLET PO PRN (05:50)
[2018-03-12] MEDS: BRIMONIDINE 0.2% OPHTH DROPS 5ML BOTHEYE SCH ×2 (05:51→13:53)
[2018-03-12] MEDS: DORZOLAMIDE 2% OPHTH 10 ML BOTTLE BOTHEYE SCH ×2 (05:51→13:53)
[2018-03-12] MEDS: BLOOD SUGAR DIAGNOSTIC STRIP TEST SCH ×3 (06:19→18:08)
[2018-03-12 08:00] VITALS: BP 180/53
[2018-03-12] MEDS: CLOPIDOGREL 75MG TABLET PO SCH (08:53)
[2018-03-12] MEDS: CLONIDINE 0.1MG TABLET PO SCH (08:53)
[2018-03-12] MEDS: CINACALCET HCL 30MG TABLET PO SCH (08:53)
[2018-03-12] MEDS: FOLIC ACID/VITAMIN B COMP W-C TABLET PO SCH (08:53)
[2018-03-12 10:13] LABS: INR 1.6; PROTHROMBIN TIME 16.4 sec (9.4-11.6)
[2018-03-12 10:13] LABS: BASOPHILS % 0.4 % (0.0-2.0); EOSINOPHILS % 3.9 % (0.0-5.0); HEMATOCRIT. 24.3 % (36.0-48.0); HEMOGLOBIN. 8.3 g/dL (12.0-16.0); LYMPHOCYTES % 10.6 % (20.0-50.0); MEAN CORPUSCULAR HEMOGLOBIN 36.5 pg (28.0-32.0); MEAN CORPUSCULAR VOLUME 106.7 fL (81.0-99.0); MEAN PLATELET VOLUME 8.6 fl (7.4-10.4); MONOCYTES % 8.2 % (2.0-8.0); NEUTROPHILS % 76.9 % (40.0-76.0); PLATELET 256 x1000/uL (130-400); RED BLOOD CELL COUNT 2.28 mill/uL (4.2-5.4); RED CELL DISTRIBUTION WIDTH 13.8 % (11.6-14.6)
[2018-03-12] MEDS ORDERED: NIFEDIPINE XL 90MG TAB PO SCH (10:15)
[2018-03-12 12:00] VITALS: BP 175/58
[2018-03-12] MEDS ORDERED: BUDESONIDE 0.5MG/2ML NEB HHN SCH (12:00)
[2018-03-12 15:13] VITALS: BP 155/52
[2018-03-12 16:00] VITALS: BP 144/52
[2018-03-12] MEDS ORDERED: WARFARIN SODIUM 7.5MG TABLET PO NR (18:00)
== END 2018-03-12 18:30 | disposition home or self-care (01) | DRG 291 ==
LOC: ER 10:26 → 7WST 13:49 → EDBEDREQ 13:52 → EDBEDREQTM 13:52 → ENRESERVDT 14:45 → ENRESERVTM 14:45
PROVIDERS: ADMIT Internal Medicine; ATTEND Internal Medicine
PROC: 5A1D70Z Performance of Urinary Filtration, Intermittent, Less than 6 Hours Per Day (ICD-10-PCS; principal; 2018-03-06)
PROC: 5A1D70Z Performance of Urinary Filtration, Intermittent, Less than 6 Hours Per Day (ICD-10-PCS; 2018-03-08)
PROC: 5A1D70Z Performance of Urinary Filtration, Intermittent, Less than 6 Hours Per Day (ICD-10-PCS; 2018-03-11)
DX: I13.2 Hypertensive heart and chronic kidney disease with heart failure and with stage 5 chronic kidney disease, or end stage renal disease (principal); J96.01 Acute respiratory failure with hypoxia; N18.6 End stage renal disease; I50.33 Acute on chronic diastolic (congestive) heart failure; N25.81 Secondary hyperparathyroidism of renal origin; E11.22 Type 2 diabetes mellitus with diabetic chronic kidney disease; E78.5 Hyperlipidemia, unspecified; D63.1 Anemia in chronic kidney disease; E11.51 Type 2 diabetes mellitus with diabetic peripheral angiopathy without gangrene; H40.9 Unspecified glaucoma; I25.10 Atherosclerotic heart disease of native coronary artery without angina pectoris; D53.9 Nutritional anemia, unspecified; I27.20 Pulmonary hypertension, unspecified; J44.9 Chronic obstructive pulmonary disease, unspecified; Z96.1 Presence of intraocular lens; Z82.49 Family history of ischemic heart disease and other diseases of the circulatory system; Z83.3 Family history of diabetes mellitus; Z85.3 Personal history of malignant neoplasm of breast; Z86.718 Personal history of other venous thrombosis and embolism; Z87.891 Personal history of nicotine dependence; Z99.81 Dependence on supplemental oxygen; Z99.2 Dependence on renal dialysis; Z86.711 Personal history of pulmonary embolism; Z86.73 Personal history of transient ischemic attack (TIA), and cerebral infarction without residual deficits; Z79.01 Long term (current) use of anticoagulants; Z79.811 Long term (current) use of aromatase inhibitors; Z79.82 Long term (current) use of aspirin; Z79.4 Long term (current) use of insulin; Z79.899 Other long term (current) drug therapy; Z98.61 Coronary angioplasty status; Z98.62 Peripheral vascular angioplasty status; Z98.42 Cataract extraction status, left eye; Z98.41 Cataract extraction status, right eye
CPT/HCPCS: 36415; 36600; 71045; 71048; 71275; 80048; 80053; 80061; 82375; 82550; 82553; 82805; 82962; 83036; 83605; 83735; 83880; 84100; 84145; 84439; 84443; 84484; 85025; 85027; 85379; 85610; 85730; 87040; 93005; 93306; 93970; 93971; 99285; J0360; J0885; J7030; J7611; J7626

== ENCOUNTER 2018-10-07 08:50 | Inpatient (IN) | payer MEDICARE, BC ==
[2018-10-07] VITALS (27 sets, daily range): BP systolic 78–160; BP diastolic 28–108
[~2018-10-07] VITALS: Ht 157.5 cm; Wt 52.8 kg
[~2018-10-07 08:50] MED LIST changes: +HYDROCODONE; -LABE100T PO; +LABE100T5 PO; +MINO2.5T2 MT
[2018-10-07] MEDS ORDERED: EPINEPHRINE 0.1MG/ML (1:10,000) 10ML SYR ONE ×2 (09:15→14:45)
[2018-10-07] MEDS ORDERED: SODIUM BICARBONATE 8.4% 1 MEQ/ML 50ML SYR IV ONE ×3 (09:34→14:45)
[2018-10-07 09:37] LABS: BASOPHILS % 0.2 % (0.0-2.0); EOSINOPHILS % 0.3 % (0.0-5.0); HEMATOCRIT. 30.6 % (36.0-48.0); HEMOGLOBIN. 9.6 g/dL (12.0-16.0); LYMPHOCYTES % 20.8 % (20.0-50.0); MEAN CORPUSCULAR HEMOGLOBIN 36.1 pg (28.0-32.0); MEAN CORPUSCULAR VOLUME 115.1 fL (81.0-99.0); NEUTROPHILS % 76.7 % (40.0-76.0); PLATELET 227 x1000/uL (130-400); RED BLOOD CELL COUNT 2.66 mill/uL (4.2-5.4); RED CELL DISTRIBUTION WIDTH 15.5 % (11.6-14.6)
[2018-10-07 09:44] LABS: CHLORIDE 98 mEq/L (98-107)
[2018-10-07 09:57] LABS: INR 1.4; PROTHROMBIN TIME 13.6 sec (9.1-11.1)
[2018-10-07] MEDS ORDERED: ALBUTEROL (0.083%) 2.5MG/3ML NEB HHN ONE (10:00)
[2018-10-07] MEDS ORDERED: CALCIUM CHLORIDE 1GM/10ML SYR IV ONE (10:00)
[2018-10-07] MEDS ORDERED: INSULIN REGULAR (HUMULIN R) 300UNITS/3ML IV ONE (10:00)
[2018-10-07] MEDS ORDERED: DEXTROSE 50% WATER 50ML SYRINGE IV ONE (10:00)
[2018-10-07] MEDS ORDERED: FUROSEMIDE 100MG/10ML VIAL IV STA (10:00)
[2018-10-07] MEDS ORDERED: SODIUM POLYSTYRENE SULFONATE 15 G/60 ML BOT PO ONE (10:00)
[2018-10-07 10:55] LABS: BG BASE EXCESS -3.9 mmol/L (-2.0-2.0); BG CARBOXYHEMOGLOBIN 0.3 % (0.5-1.5); BG DEOXYHEMOGLOBIN 0.7 % (0.0-5.0); BG FRACTION INSPIRED OXYGEN 100; BG HCO3 ACT 18.6 mmol/L (22.0-26.0); BG METHEMOGLOBIN 0.3 % (0.0-1.5); BG OXYGEN SATURATION 99.3 % (92.0-98.5); BG OXYHEMOGLOBIN 98.7 % (94.0-97.0); BG PCO2 25.2 mmHg (35.0-45.0); BG PH 7.486 (7.350-7.450); BG PO2 378.8 mmHg (75.0-100.0); BG SAMPLE SITE LEFT BRACHIAL; BG TIDAL VOLUME(mL) 500 mL; BG TOTAL HEMOGLOBIN 8.6 g/dL (12.0-18.0); BG VENT MODE VENT - A/C; BG VENT RATE 16 set
[2018-10-07] MEDS ORDERED: FENTANYL CITRATE/PF 50MCG/ML 2ML VIAL IV ONE (11:00)
[2018-10-07] MEDS ORDERED: MIDAZOLAM HCL 50 MG in DEXTROSE 5% WATER 40 ML IV ONE ×2 (11:00→11:15)
[2018-10-07 11:10] LABS: PLATELET ESTIMATE NORMAL
[2018-10-07] MEDS ORDERED: ONDANSETRON HCL 4MG/2ML INJ IV PRN (12:45)
[2018-10-07] MEDS ORDERED: NOREPINEPHRINE 4MG/250ML PMX 250 ML IV ONE ×2 (12:45→12:47)
[2018-10-07] MEDS ORDERED: LORAZEPAM 2MG/ML CPJ IV PRN (12:45)
[2018-10-07] MEDS ORDERED: DOPAMINE 400MG/250ML PREMIX 250 ML IV ONE ×2 (14:45→14:51)
[2018-10-07] MEDS ORDERED: ATROPINE SULFATE 1MG/10ML SYR ONE (14:45)
[2018-10-07] MEDS ORDERED: HYDROMORPHONE HCL/PF 2MG/ML CPJ IV PRN (17:30)
[2018-10-07] MEDS ORDERED: IPRATROPIUM/ALBUTEROL 0.5-3(2.5)MG/3ML NEB INH PRN (17:30)
[2018-10-07 17:38] LABS: BG BASE EXCESS -2.7 mmol/L (-2.0-2.0); BG CARBOXYHEMOGLOBIN 0.3 % (0.5-1.5); BG DEOXYHEMOGLOBIN 0.4 % (0.0-5.0); BG FRACTION INSPIRED OXYGEN 80; BG HCO3 ACT 19.4 mmol/L (22.0-26.0); BG METHEMOGLOBIN 0.7 % (0.0-1.5); BG OXYGEN SATURATION 99.6 % (92.0-98.5); BG OXYHEMOGLOBIN 98.6 % (94.0-97.0); BG PCO2 25.7 mmHg (35.0-45.0); BG PH 7.496 (7.350-7.450); BG PO2 352.9 mmHg (75.0-100.0); BG SAMPLE SITE LEFT RADIAL; BG TIDAL VOLUME(mL) 500 mL; BG TOTAL HEMOGLOBIN 10.6 g/dL (12.0-18.0); BG VENT MODE VENT - A/C; BG VENT RATE 16 set
[2018-10-07] MEDS: DOPAMINE 800MG PREMIX (DOUBLE) 250 ML IV PRN (17:56)
[2018-10-07] MEDS ORDERED: ENOXAPARIN 40MG/0.4ML SYR SUBCUT NR (18:00)
[2018-10-07] MEDS ORDERED: PHENYLEPHRINE HCL 10 MG/ML 1ML (IV VIAL) IV ONE (18:50)
[2018-10-07 20:23] LABS: HEMATOCRIT 34.1 % (36.0-48.0); HEMOGLOBIN 10.9 g/dL (12.0-16.0)
[2018-10-07] MEDS: DORZOLAMIDE 2% OPHTH 10 ML BOTTLE BOTHEYE SCH (22:15)
[2018-10-07] MEDS: BRIMONIDINE 0.2% OPHTH DROPS 5ML BOTHEYE SCH (22:16)
[2018-10-07] MEDS: NOREPINEPHRINE 32 MG in DEXT 5% WATER 468 ML IV PRN (22:45)
[2018-10-07] MEDS: SODIUM CHLORIDE 0.9% 1,000 ML IV SCH (22:52)
[2018-10-08] VITALS (101 sets, daily range): BP systolic 48–176; BP diastolic 15–93
[2018-10-08] MEDS: PHENYLEPHRINE 20 MG in DEXT 5% WATER 248 ML IV PRN ×3 (00:39→07:04)
[2018-10-08] MEDS: DOPAMINE 800MG PREMIX (DOUBLE) 250 ML IV PRN ×3 (01:38→16:38)
[2018-10-08] MEDS: NOREPINEPHRINE 32 MG in DEXT 5% WATER 468 ML IV PRN ×2 (04:37→22:42)
[2018-10-08] MEDS: BRIMONIDINE 0.2% OPHTH DROPS 5ML BOTHEYE SCH ×3 (05:58→21:37)
[2018-10-08] MEDS: DORZOLAMIDE 2% OPHTH 10 ML BOTTLE BOTHEYE SCH ×3 (05:58→21:37)
[2018-10-08 06:34] LABS: HEMATOCRIT. 31.1 % (36.0-48.0); HEMOGLOBIN. 10.2 g/dL (12.0-16.0); MEAN CORPUSCULAR HEMOGLOBIN 36.3 pg (28.0-32.0); MEAN CORPUSCULAR VOLUME 110.4 fL (81.0-99.0); MEAN PLATELET VOLUME 9.7 fl (7.4-10.4); PLATELET 261 x1000/uL (130-400); RED BLOOD CELL COUNT 2.81 mill/uL (4.2-5.4); RED CELL DISTRIBUTION WIDTH 15.4 % (11.6-14.6)
[2018-10-08 07:02] LABS: CHLORIDE 97 mEq/L (98-107)
[2018-10-08] MEDS ORDERED: PHENYLEPHRINE 20 MG in DEXT 5% WATER 498 ML IV PRN (07:15)
[2018-10-08 08:13] LABS: NUCLEATED RED BLOOD CELLS 1 /100 WBC; PLATELET ESTIMATE NORMAL
[2018-10-08 08:22] LABS: BG BASE EXCESS -1.3 mmol/L (-2.0-2.0); BG CARBOXYHEMOGLOBIN 0.3 % (0.5-1.5); BG DEOXYHEMOGLOBIN 0.5 % (0.0-5.0); BG FRACTION INSPIRED OXYGEN 80; BG HCO3 ACT 19.5 mmol/L (22.0-26.0); BG METHEMOGLOBIN 2.8 % (0.0-1.5); BG OXYGEN SATURATION 99.5 % (92.0-98.5); BG OXYHEMOGLOBIN 96.4 % (94.0-97.0); BG PCO2 21.6 mmHg (35.0-45.0); BG PH 7.573 (7.350-7.450); BG PO2 353.9 mmHg (75.0-100.0); BG SAMPLE SITE LEFT RADIAL; BG TIDAL VOLUME(mL) 450 mL; BG TOTAL HEMOGLOBIN 9.9 g/dL (12.0-18.0); BG VENT MODE VENT - A/C; BG VENT RATE 16 set
[2018-10-08] MEDS ORDERED: PHENYLEPHRINE 80 MG in DEXT 5% WATER 492 ML IV PRN ×2 (11:00→22:30)
[2018-10-08 12:18] LABS: INR 1.7; PROTHROMBIN TIME 16.8 sec (9.1-11.1)
[2018-10-08 12:45] LABS: BG BASE EXCESS -5.3 mmol/L (-2.0-2.0); BG CARBOXYHEMOGLOBIN 0.4 % (0.5-1.5); BG DEOXYHEMOGLOBIN 0.7 % (0.0-5.0); BG FRACTION INSPIRED OXYGEN 60; BG HCO3 ACT 16.5 mmol/L (22.0-26.0); BG OXYGEN SATURATION 99.3 % (92.0-98.5); BG OXYHEMOGLOBIN 95.9 % (94.0-97.0); BG PCO2 21.7 mmHg (35.0-45.0); BG PO2 237.7 mmHg (75.0-100.0); BG SAMPLE SITE LEFT RADIAL; BG TIDAL VOLUME(mL) 400 mL; BG TOTAL HEMOGLOBIN 9.6 g/dL (12.0-18.0); BG VENT MODE VENT - A/C; BG VENT RATE 16 set
[2018-10-08 13:55] LABS: TOTAL IRON BINDING CAPACITY 164 ug/dL (250-450)
[2018-10-08 14:05] LABS: HEMATOCRIT 27.8 % (36.0-48.0); HEMOGLOBIN 9.1 g/dL (12.0-16.0)
[2018-10-08 14:26] LABS: HEPATITIS B SURFACE ANTIGEN NEGATIVE
[2018-10-08 14:55] LABS: HEPATITIS A AB IGM NEGATIVE (NEGATIVE)
[2018-10-08] MEDS ORDERED: PIPERACILLIN/TAZ 2.25G PREMIX 50 ML IV SCH (15:00)
[2018-10-08] MEDS: PANTOPRAZOLE SODIUM 40 MG/VIAL IV SCH (16:19)
[2018-10-08] MEDS: PIPERACILLIN/TAZ 2.25G PREMIX 50 ML IV SCH ×2 (16:19→23:53)
[2018-10-08] MEDS: SODIUM CHLORIDE 0.9% 1,000 ML IV SCH (16:20)
[2018-10-08] MEDS ORDERED: VANCOMYCIN 1250MG in DEXTROSE 5% WATER 250ML IV SCH (18:00)
[2018-10-08] MEDS ORDERED: PIPERACILLIN/TAZOBACTAM 2.25 G in DEXTROSE 5% WATER 50 ML IV SCH (22:00)
[2018-10-09] VITALS (46 sets, daily range): BP systolic 48–136; BP diastolic 13–55
[2018-10-09] MEDS: DOPAMINE 800MG PREMIX (DOUBLE) 250 ML IV PRN ×2 (02:33→09:11)
[2018-10-09] MEDS: DORZOLAMIDE 2% OPHTH 10 ML BOTTLE BOTHEYE SCH (05:28)
[2018-10-09] MEDS: BRIMONIDINE 0.2% OPHTH DROPS 5ML BOTHEYE SCH (05:28)
[2018-10-09] MEDS: PIPERACILLIN/TAZ 2.25G PREMIX 50 ML IV SCH (05:29)
[2018-10-09 05:55] LABS: BASOPHILS % 0.3 % (0.0-2.0); EOSINOPHILS % 0.1 % (0.0-5.0); HEMOGLOBIN. 9.7 g/dL (12.0-16.0); LYMPHOCYTES % 8.8 % (20.0-50.0); MEAN CORPUSCULAR HEMOGLOBIN 36.5 pg (28.0-32.0); MEAN CORPUSCULAR VOLUME 120.4 fL (81.0-99.0); MEAN PLATELET VOLUME 10.5 fl (7.4-10.4); MONOCYTES % 8.2 % (2.0-8.0); NEUTROPHILS % 82.6 % (40.0-76.0); PLATELET 233 x1000/uL (130-400); RED BLOOD CELL COUNT 2.66 mill/uL (4.2-5.4); RED CELL DISTRIBUTION WIDTH 17.8 % (11.6-14.6)
[2018-10-09 06:07] LABS: CHLORIDE 88 mEq/L (98-107)
[2018-10-09 08:28] LABS: BG BASE EXCESS -12.7 mmol/L (-2.0-2.0); BG CARBOXYHEMOGLOBIN 0.1 % (0.5-1.5); BG DEOXYHEMOGLOBIN 0.8 % (0.0-5.0); BG FRACTION INSPIRED OXYGEN 60; BG HCO3 ACT 11.1 mmol/L (22.0-26.0); BG METHEMOGLOBIN 2.6 % (0.0-1.5); BG OXYGEN SATURATION 99.2 % (92.0-98.5); BG OXYHEMOGLOBIN 96.5 % (94.0-97.0); BG PCO2 20.7 mmHg (35.0-45.0); BG PH 7.348 (7.350-7.450); BG PO2 256.8 mmHg (75.0-100.0); BG SAMPLE SITE RIGHT RADIAL; BG TOTAL HEMOGLOBIN 10.1 g/dL (12.0-18.0); BG VENT MODE VENT - A/C
[2018-10-09] MEDS ORDERED: PETROLATUM,WHITE OPHTH OINT 3.5GM BOTHEYE SCH (09:00)
[2018-10-09] MEDS: PANTOPRAZOLE SODIUM 40 MG/VIAL IV SCH (09:08)
[2018-10-09] MEDS: SODIUM CHLORIDE 0.9% 1,000 ML IV SCH (09:09)
[2018-10-09 10:46] LABS: HEMATOCRIT 29.7 % (36.0-48.0); HEMOGLOBIN 8.2 g/dL (12.0-16.0)
== END 2018-10-09 11:30 | disposition expired | DRG 208 ==
LOC: ER 09:00 → CVICU 11:14 → EDBEDREQ 11:23 → ENRESERV 15:52
PROVIDERS: ADMIT Internal Medicine; ATTEND Internal Medicine
PROC: 5A1945Z Respiratory Ventilation, 24-96 Consecutive Hours (ICD-10-PCS; principal; 2018-10-07)
PROC: 05HY33Z Insertion of Infusion Device into Upper Vein, Percutaneous Approach (ICD-10-PCS; 2018-10-07)
PROC: B54NZZA Ultrasonography of Left Upper Extremity Veins, Guidance (ICD-10-PCS; 2018-10-07)
PROC: 5A1D70Z Performance of Urinary Filtration, Intermittent, Less than 6 Hours Per Day (ICD-10-PCS; 2018-10-07)
PROC: 5A1D70Z Performance of Urinary Filtration, Intermittent, Less than 6 Hours Per Day (ICD-10-PCS; 2018-10-09)
DX: J96.91 Respiratory failure, unspecified with hypoxia (principal); K72.00 Acute and subacute hepatic failure without coma; N18.6 End stage renal disease; K29.71 Gastritis, unspecified, with bleeding; G92 Toxic encephalopathy; J69.0 Pneumonitis due to inhalation of food and vomit; I50.32 Chronic diastolic (congestive) heart failure; I69.351 Hemiplegia and hemiparesis following cerebral infarction affecting right dominant side; G93.1 Anoxic brain damage, not elsewhere classified; R64 Cachexia; E11.52 Type 2 diabetes mellitus with diabetic peripheral angiopathy with gangrene; I13.2 Hypertensive heart and chronic kidney disease with heart failure and with stage 5 chronic kidney disease, or end stage renal disease; Z99.11 Dependence on respirator [ventilator] status; D68.9 Coagulation defect, unspecified; J84.9 Interstitial pulmonary disease, unspecified; E87.2 Acidosis; I46.9 Cardiac arrest, cause unspecified; I25.10 Atherosclerotic heart disease of native coronary artery without angina pectoris; I27.21 Secondary pulmonary arterial hypertension; E87.5 Hyperkalemia; E78.5 Hyperlipidemia, unspecified; E78.00 Pure hypercholesterolemia, unspecified; Z66 Do not resuscitate; H40.9 Unspecified glaucoma; D53.9 Nutritional anemia, unspecified; J44.9 Chronic obstructive pulmonary disease, unspecified; E11.22 Type 2 diabetes mellitus with diabetic chronic kidney disease; Z99.2 Dependence on renal dialysis; Z98.61 Coronary angioplasty status; Z89.422 Acquired absence of other left toe(s); Z89.412 Acquired absence of left great toe; Z87.891 Personal history of nicotine dependence; Z86.718 Personal history of other venous thrombosis and embolism; Z86.711 Personal history of pulmonary embolism; Z85.3 Personal history of malignant neoplasm of breast; Z82.49 Family history of ischemic heart disease and other diseases of the circulatory system; Z83.3 Family history of diabetes mellitus; Z89.421 Acquired absence of other right toe(s); Z79.01 Long term (current) use of anticoagulants
CPT/HCPCS: 36415; 36569; 36600; 71045; 74018; 76700; 76937; 78580; 80048; 80202; 82375; 82728; 82805; 82962; 83540; 83550; 83605; 84132; 84145; 84484; 85014; 85018; 86705; 86709; 86803; 87070; 87340; 93005; 93306; 93970; 94002; 94003; 94640; 95816; 96374; 96375; 99291; C1725; C9113; J0461; J1265; J1815; J1940; J2250; J2370; J2543; J3010; J3370; J3490; J7060; J7611; J7620; A4315